=== PATIENT | female | born 1950 | race Caucasian/White ===

== ENCOUNTER 2022-09-24 14:39 | Observation (INO) | payer MEDICARE, OTHER ==
[2022-09-24] MEDS ORDERED: fentaNYL 100 MCG/2 ML SDV IVPUSH ONE (14:53)
[2022-09-24] MEDS: Sodium Chloride 0.9% 10 ML Syringe FLUSH PRN ×2 (14:59→22:50)
[2022-09-24] MEDS ORDERED: Iopamidol 755 Mg/ML 100 ML Bottle IV ONE (15:20)
[2022-09-24 15:21] LABS: ESTIMATED GFR 48 mL/min (>60)
[2022-09-24] MEDS ORDERED: NS + KCl 20mEq/L 1,000 ML IV SCH (16:15)
[2022-09-24] MEDS ORDERED: Ketorolac 30 MG/ML SDV IVPUSH ONE (17:19)
[2022-09-24] MEDS: PENICILLIN V POTASSIUM PO SCH (20:41)
[2022-09-24] MEDS ORDERED: LOVASTATIN 40 MG PO SCH (21:00)
[2022-09-24] MEDS ORDERED: Montelukast 10 MG Tab *PTOM PO SCH (21:00)
[2022-09-24] MEDS: Acetaminophen 325 MG Tab PO PRN (21:49)
[2022-09-24] MEDS ORDERED: Ketorolac 30 MG/ML SDV IVPUSH PRN (23:00)
[2022-09-25] MEDS: Acetaminophen 325 MG Tab PO PRN (04:11)
[2022-09-25 06:40] LABS: ESTIMATED GFR 48 mL/min (>60)
[2022-09-25] MEDS ORDERED: Ketorolac 15 MG/ML SDV IVPUSH PRN (07:09)
[2022-09-25] MEDS ORDERED: [UNRECOGNIZED DRUG - OTHER] PO SCH (09:00)
[2022-09-25] MEDS ORDERED: Hydrochlorothiazide/Triamterene 25-37.5 Tab PO SCH (09:00)
[2022-09-25] MEDS ORDERED: OMEPRAZOLE 10 MG PO SCH (09:00)
[2022-09-25] MEDS: PENICILLIN V POTASSIUM PO SCH (09:25)
== END 2022-09-25 10:50 | disposition home or self-care (01) ==
LOC: FB.ED 14:39 → FB.MS 17:05
PROVIDERS: ADMIT Family Medicine; ATTEND Family Medicine
DX: S22.22XA Fracture of body of sternum, initial encounter for closed fracture (principal); E87.6 Hypokalemia; D72.829 Elevated white blood cell count, unspecified; I10 Essential (primary) hypertension; E78.00 Pure hypercholesterolemia, unspecified; K21.9 Gastro-esophageal reflux disease without esophagitis; D64.9 Anemia, unspecified; I49.3 Ventricular premature depolarization; M17.12 Unilateral primary osteoarthritis, left knee; M47.812 Spondylosis without myelopathy or radiculopathy, cervical region; Z79.899 Other long term (current) drug therapy; V89.2XXA Person injured in unspecified motor-vehicle accident, traffic, initial encounter
CPT/HCPCS: 36415; 70450; 71045; 71260; 72125; 72170; 73560-LT; 74177; 80048; 80053; 83735; 84484; 85025; 85610; 93005; 93010; 94150; 96365; 96366; 96375; 99217; 99219; 99283; 99285-25; A9270-GY; G0378; J1885; J3010; J3480; J3490; Q9967